=== PATIENT | male | born 2000 | race African-American/Black ===

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

== ENCOUNTER 2020-01-01 11:09 | Emergency (ER) | payer BC ==
[2020-01-01] MEDS ORDERED: Acetaminophen 325 MG Tab PO ONE (11:29)
[2020-01-01] MEDS ORDERED: Amoxicillin 500 MG Cap PO ONE (11:29)
[2020-01-01] MEDS ORDERED: Ibuprofen 600 MG Tab PO ONE (11:30)
--- NOTE | 2020-01-01 11:34 | EDM.PDOC ---
ED [facility] GENERAL MEDICAL PROBLEM - General Chief Complaint: General Stated Complaint: MOUTH COMPLAINT Time Seen by Provider: 01/01/20 11:22 - History of Present Illness INITIAL COMMENTS - FREE TEXT/NARRATIVE: HISTORY AND PHYSICAL: History of present illness: This 19-year-old male otherwise healthy presents with left upper first molar pain. Patient states he has had cavities there before and is concerned that he may be getting an abscess. No fevers, difficulty swallowing, difficulty with range of motion of the neck, or any other concerns. Review of systems: A 10-point review of systems, other than pertinent positives and negatives as stated per HPI, is otherwise negative. Past medical history: As per history of present illness and as reviewed below otherwise noncontributory. Surgical history: As per history of present illness and as reviewed below otherwise noncontributory. Social history: No reported history of drug or alcohol abuse. Family history: As per history of present illness and as reviewed below otherwise noncontributory. Physical exam: VITAL SIGNS: Reviewed. GENERAL: Appears to be in acute pain. No facial swelling. HEAD: No signs of head trauma. EYES: Pupils are equal. Extraocular motions intact. EARS: Hearing grossly intact. MOUTH: Oropharynx is normal. Dental caries are noted. Gingivitis is noted. No evidence of periapical abscess or other deep space infection. NECK: No adenopathy, no JVD. CHEST: Chest with clear breath sounds bilaterally. No wheezes, rales, or rhonchi. CARDIAC: Regular rate and rhythm. Normal S1 and S2, without murmurs, gallops, or rubs. VASCULAR: Peripheral pulses normal and equal in all extremities. ABDOMEN: Soft, without detectable tenderness. No sign of distention. No rebound or guarding, and no masses palpated. MUSCULOSKELETAL: Good range of motion of all major joints. Extremities without clubbing, cyanosis or edema. NEUROLOGIC EXAM: Alert and oriented x 3. No focal sensory or motor deficits. Speech normal. Follows commands. PSYCHIATRIC: Mood normal. SKIN: No rash or lesions. Initial Differential Diagnosis & Plan: Differential diagnosis includes pulpitis, reversible pulpitis, irreversible pulpitis, dental fracture, apical abscess, periapical abscess, deep space dental infection, dental pain, and dental caries. It appears patient has dental caries with pulpitis. My diagnostic impression: 1. Pulpitis 2. Gingivitis 3. Dental caries Follow-up with dental professional. Start antibiotics. Start Peridex. Pain control with Tylenol Motrin. - Related Data Allergies Allergy/AdvReac Type Severity Reaction Status Date / Time No Known Allergies Allergy Verified 09/16/17 14:10 Home Meds: Home Meds Acetaminophen/HYDROcodone [[facility] 325-5 MG] 1 dose PO Q4H #20 tablet 04/15/19 [Rx] Clindamycin HCl 300 mg PO TID 10 Days #30 capsule 04/15/19 [Rx] Acetaminophen [Tylenol Extra Strength] 1,000 mg PO Q6HR PRN #60 tablet 01/01/20 [Rx] Amoxicillin 1,000 mg PO TID 7 Days #21 capsule 01/01/20 [Rx] Chlorhexidine Gluconate 0.12% [Peridex 0.12% Rinse] 473 ml MM TID #473 ml 01/01/20 [Rx] Ibuprofen [Motrin] 600 mg PO Q6H PRN #30 tab 01/01/20 [Rx] Past Medical History - Past Health History Medical/Surgical History: Denies Medical/Surgical History - Infectious Disease History Infectious Disease History: Reports: None Social & Family History - Family History Family Medical History: Noncontributory - Caffeine Use Caffeine Use: Reports: Energy Drinks, Soda ED ROS GENERAL - Review of Systems Review Of Systems: See Below (noted) ED EXAM, GENERAL - Physical Exam Exam: See Below (noted) Course - Orders/Labs/Meds Orders: Active Orders 24 hr Category Date Time Status Acetaminophen [TylenoL] Med 01/01/20 11:29 Once 975 mg PO NOW ONE Ibuprofen [Motrin] Med 01/01/20 11:30 Once 600 mg PO ONETIME ONE Meds: Medications Discontinued Medications Generic Name Dose Route Start Last Admin Trade Name Freq PRN Reason Stop Dose Admin Amoxicillin 1,000 mg 01/01/20 11:29 Amoxil PO 01/01/20 11:30 ONETIME ONE Departure - Departure Time of Disposition: 11:30 Disposition: Home, Self-Care 01 Clinical Impression: Acute pulpitis, Gingivitis, Caries of dentin - Discharge Information *PRESCRIPTION DRUG MONITORING PROGRAM REVIEWED*: Not Applicable *COPY OF PRESCRIPTION DRUG MONITORING REPORT IN PATIENT LINDSAY: Not Applicable Prescriptions: Amoxicillin 1,000 mg PO TID 7 Days #21 capsule Ibuprofen [Motrin] 600 mg PO Q6H PRN #30 tab PRN Reason: Pain Chlorhexidine Gluconate 0.12% [Peridex 0.12% Rinse] 473 ml MM TID #473 ml Acetaminophen [Tylenol Extra Strength] 1,000 mg PO Q6HR PRN #60 tablet PRN Reason: Pain Instructions: Preventive Dental Care, Adult, Trench Mouth Referrals: PCP,None [Primary Care Provider] - Additional Instructions: The following information is given to patients seen in the emergency department who are being discharged to home. This information is to outline your options for follow-up care. We provide all patients seen in our emergency department with a follow-up referral. The need for follow-up, as well as the timing and circumstances, are variable depending upon the specifics of your emergency department visit. If you don't have a primary care physician on staff, we will provide you with a referral. We always advise you to contact your personal physician following an emergency department visit to inform them of the circumstance of the visit and for follow-up with them and/or the need for any referrals to a consulting specialist. The emergency department will also refer you to a specialist when appropriate. This referral assures that you have the opportunity for follow-up care with a specialist. All of these measure are taken in an effort to provide you with optimal care, which includes your follow-up. Thank you for coming to the [facility] urgency department for your care today. It was Dr. Meyers's pleasure to take care of you. [facility] [address] [place] [address] [place] [address] You have a dental infection likely will require more dental care. We have started your antibiotics and given you mouthwash along with pain control. Please return emergency department for worsening including fever, swelling, neck pain, difficulty swallowing or any other concerns. Under all circumstances we always encourage you to contact your private physician who remains a resource for coordinating your care. When calling for follow-up care, please make the office aware that this follow-up is from your recent emergency room visit. If for any reason you are refused follow-up, please contact the [facility] Emergency Department at and asked to speak to the emergency department charge nurse. - My Orders Last 24 Hours: My Active Orders 01/01/20 11:29 Acetaminophen [TylenoL] 975 mg PO NOW ONE 01/01/20 11:30 Ibuprofen [Motrin] 600 mg PO ONETIME ONE - Assessment/Plan Last 24 Hours: My Active Orders 01/01/20 11:29 Acetaminophen [TylenoL] 975 mg PO NOW ONE 01/01/20 11:30 Ibuprofen [Motrin] 600 mg PO ONETIME ONE
== END 2020-01-01 11:45 | disposition home or self-care (01) ==
LOC: MW.ED 11:09
DX: K04.01 Reversible pulpitis (principal); K05.10 Chronic gingivitis, plaque induced; K02.9 Dental caries, unspecified
CPT/HCPCS: 99282